=== PATIENT | female | born 1975 ===

== ENCOUNTER 2017-03-03 12:05 | Emergency (ER) | payer OTHER ==
[2017-03-03 12:22] VITALS: TEMP 98; O2SAT 99
[2017-03-03] MEDS ORDERED: SODIUM CHLORIDE 0.9% 1000 ML SOL IV SCH (12:45)
[2017-03-03] MEDS ORDERED: MECLIZINE HYDROCHLORIDE 12.5 MG TAB PO ONE (12:48)
[2017-03-03 12:53] LABS: BASOPHILS % (AUTO) 1 % (0-3); EOSINOPHILS % (AUTO) 1 % (0-9); HEMATOCRIT 45 % (35-47); MEAN CORPUSCULAR HGB CONC 32.5 gm/dl (32.0-36.0); MONOCYTES % (AUTO) 4.1 % (0-12); NEUTROPHILS % (AUTO) 78.8 % (37-80)
[2017-03-03 12:58] LABS: MEAN CORPUSCULAR VOLUME 81 fL (81-99)
[2017-03-03] MEDS ORDERED: MECLIZINE HYDROCHLORIDE 12.5 MG TAB ONE (12:59)
[2017-03-03 13:16] LABS: ALBUMIN 3.7 gm/dl (3.4-5.0); BILIRUBIN,DIRECT 0.2 mg/dl (0.0-0.2); CALCIUM 8.3 mg/dl (8.5-10.1); POTASSIUM 3.1 mMol/L (3.5-5.1)
[2017-03-03] MEDS ORDERED: POTASSIUM CHLORIDE 10 MEQ TER PO ONE (13:45)
[2017-03-03] MEDS ORDERED: POTASSIUM CHLORIDE 10 MEQ TER ONE (14:01)
[2017-03-03 14:49] VITALS: BP 143/98; PULSE 87; RESP 20
== END 2017-03-03 14:19 | disposition home or self-care (01) ==
LOC: ED 12:05
DX: E87.6 Hypokalemia (principal); Z32.02 Encounter for pregnancy test, result negative
CPT/HCPCS: 80048; 80076; 80307; 82150; 84703; 85025; 93005; 99283

== ENCOUNTER 2018-03-09 10:35 | Emergency (ER) | payer OTHER ==
[2018-03-09] MEDS ORDERED: ONDANSETRON HCL 4 MG/2 ML SOL IV ONE (11:05)
[2018-03-09] MEDS ORDERED: ONDANSETRON HCL 4 MG/2 ML SOL ONE (11:07)
[2018-03-09] MEDS ORDERED: SODIUM CHLORIDE 0.9% 1000ML 1,000 ML IV SCH (11:15)
[2018-03-09 11:24] LABS: BASOPHILS % (AUTO) 1 % (0-3); EOSINOPHILS % (AUTO) 1 % (0-9); HEMATOCRIT 44 % (35-47); HEMOGLOBIN 14.9 gm/dl (12.0-15.5); LYMPHOCYTES % (AUTO) 14.3 % (10-50); MEAN CORPUSCULAR HEMOGLOBIN 27.6 pg (27.0-32.0); MEAN CORPUSCULAR HGB CONC 33.7 gm/dl (32.0-36.0); MEAN CORPUSCULAR VOLUME 82 fL (81-99); MONOCYTES % (AUTO) 4.8 % (0-12); NEUTROPHILS % (AUTO) 79.2 % (37-80)
[2018-03-09 11:29] VITALS: TEMP 98.6
[2018-03-09 11:35] LABS: ALBUMIN 3.6 gm/dl (3.4-5.0); BILIRUBIN,TOTAL 0.7 mg/dl (0.2-1.0); CARBON DIOXIDE 24.4 mEq/L (21-32); CREATININE 0.75 mg/dl (0.60-1.00); POTASSIUM 3.4 mMol/L (3.5-5.1); TOTAL PROTEIN 7.9 gm/dl (6.4-8.2)
[2018-03-09 13:06] VITALS: BP 154/86; PULSE 66; RESP 24; O2SAT 96
== END 2018-03-09 12:50 | disposition home or self-care (01) ==
LOC: ED 10:35
DX: R42 Dizziness and giddiness (principal); R11.0 Nausea
CPT/HCPCS: 80053; 85025; 99284; J2405

== ENCOUNTER 2018-04-12 16:45 | Emergency (ER) | payer OTHER ==
[2018-04-12] MEDS ORDERED: ONDANSETRON 4 MG ODT ONE ×2 (17:14→21:20)
[2018-04-12] MEDS: ONDANSETRON 4 MG ODT BU ONE ×2 (17:19→21:20)
[2018-04-12 17:32] VITALS: RESP 20
[2018-04-12 18:13] LABS: APPEARANCE,URINE Slightly Cloudy; BILIRUBIN,URINE 1+ (NEGATIVE); COLOR,URINE Dark yellow; GLUCOSE, URINE (UA) NEGATIVE (NEGATIVE); KETONES,URINE TRACE (NEGATIVE); LEUKOCYTE ESTERASE ,URINE NEGATIVE (NEGATIVE); NITRATE,URINE NEGATIVE (NEGATIVE); OCCULT BLOOD,URINE NEGATIVE (NEG-TRACE); PH,URINE 5.5
[2018-04-12 18:35] LABS: AMPHETAMINES NEGATIVE (NEGATIVE); BARBITUATES NEGATIVE (NEGATIVE); BENZODIAZEPINES NEGATIVE (NEGATIVE); CANNABINOL(THC) NEGATIVE (NEGATIVE); COCAINE(COC) NEGATIVE (NEGATIVE); ICTOTEST,URINE NEGATIVE (NEGATIVE); METHADONE NEGATIVE (NEGATIVE); METHAMPHETAMINES NEGATIVE (NEGATIVE); OPIATES(OP13) NEGATIVE (NEGATIVE); OXYCODONE(OXY) NEGATIVE (NEGATIVE); PROPOXYPHENE(PPX) NEGATIVE (NEGATIVE); TRICYCLIC ANTIDEPRESSANTS NEGATIVE (NEGATIVE)
[2018-04-12 18:40] LABS: BACTERIA 3+ (< 1+); CRYSTALS 1+ AMORPHOUS URATES (0-3 AVE/HPF); EPITHELIAL CELLS 0-1 (SQUAMOUS); RBC,URINE NEGATIVE (0-3AV/HPF); WBC,URINE 0-1 (0-5AV/HPF)
[2018-04-12 18:42] LABS: BASOPHILS % (AUTO) 2 % (0-3); EOSINOPHILS % (AUTO) 1 % (0-9); HEMATOCRIT 44 % (35-47); HEMOGLOBIN 14.9 gm/dl (12.0-15.5); LYMPHOCYTES % (AUTO) 25.3 % (10-50); MEAN CORPUSCULAR HEMOGLOBIN 27.2 pg (27.0-32.0); MEAN CORPUSCULAR HGB CONC 33.9 gm/dl (32.0-36.0); MONOCYTES % (AUTO) 5.8 % (0-12); NEUTROPHILS % (AUTO) 66.2 % (37-80)
[2018-04-12 18:44] LABS: ALBUMIN 3.5 gm/dl (3.4-5.0); ALKALINE PHOSPHATASE 78 IU/L (46-116); ALT 60 IU/L (14-63); AST 36 IU/L (15-37); BILIRUBIN,TOTAL 0.9 mg/dl (0.2-1.0); BLOOD UREA NITROGEN 5 mg/dl (7-18); CALCIUM 8.8 mg/dl (8.5-10.1); CARBON DIOXIDE 28.6 mEq/L (21-32); CHLORIDE 102 mMol/L (98-107); CREATININE 0.73 mg/dl (0.60-1.00); GLOM FILT RATE 88 mL/min (>60); GLUCOSE 99 mg/dl (74-106); POTASSIUM 3.3 mMol/L (3.5-5.1); SALICYLATE < 2.8 mg/dl (2.8-30.0); SODIUM 140 mMol/L (136-145); THYROID STIMULATING HORMONE 2.004 uIU/ml (0.358-3.740); TOTAL PROTEIN 7.9 gm/dl (6.4-8.2)
[2018-04-12 18:47] VITALS: BP 154/99; PULSE 68; TEMP 97.8; O2SAT 99
[2018-04-12 18:47] LABS: ACETAMINOPHEN < 2 ug/ml (10-30); ALCOHOL < 0.003 gm/dl (0.000-0.08); MEAN CORPUSCULAR VOLUME 80 fL (81-99)
[2018-04-12] MEDS: CIPROFLOXACIN HCL 500 MG TAB PO SCH (20:00)
[2018-04-12] MEDS ORDERED: CIPROFLOXACIN HCL 500 MG TAB PO ONE (20:31)
[2018-04-12] MEDS ORDERED: GABAPENTIN 300 MG CAP ONE (21:52)
[2018-04-12] MEDS: GABAPENTIN 300 MG CAP PO ONE (21:55)
== END 2018-04-13 ==
LOC: ED 16:45
DX: R45.851 Suicidal ideations (principal); N39.0 Urinary tract infection, site not specified; F32.9 Major depressive disorder, single episode, unspecified
CPT/HCPCS: 36415; 80053; 80305; 80307; 81001; 84443; 84703; 85025; 87088; 99283; 99284; A9270-GY

== ENCOUNTER 2018-04-28 14:46 | Emergency (ER) | payer OTHER ==
[2018-04-28 15:43] LABS: BASOPHILS % (AUTO) 1 % (0-3); EOSINOPHILS % (AUTO) 0 % (0-9); HEMATOCRIT 38 % (35-47); LYMPHOCYTES % (AUTO) 10.3 % (10-50); MEAN CORPUSCULAR HEMOGLOBIN 27.2 pg (27.0-32.0); MEAN CORPUSCULAR HGB CONC 34.4 gm/dl (32.0-36.0); NEUTROPHILS % (AUTO) 85.3 % (37-80)
[2018-04-28 15:50] LABS: MEAN CORPUSCULAR VOLUME 79 fL (81-99)
[2018-04-28 16:08] LABS: ALBUMIN 3.8 gm/dl (3.4-5.0); ALCOHOL < 0.003 gm/dl (0.000-0.08); ALKALINE PHOSPHATASE 60 IU/L (46-116); ALT 44 IU/L (14-63); AST 22 IU/L (15-37); BILIRUBIN,TOTAL 0.4 mg/dl (0.2-1.0); BLOOD UREA NITROGEN 5 mg/dl (7-18); CALCIUM 7.9 mg/dl (8.5-10.1); CARBON DIOXIDE 22.1 mEq/L (21-32); CHLORIDE 105 mMol/L (98-107); CREATININE 0.64 mg/dl (0.60-1.00); GLOM FILT RATE 103 mL/min (>60); GLUCOSE 117 mg/dl (74-106); POTASSIUM 3.3 mMol/L (3.5-5.1); SODIUM 140 mMol/L (136-145); THYROID STIMULATING HORMONE 1.185 uIU/ml (0.358-3.740); TOTAL PROTEIN 7.3 gm/dl (6.4-8.2)
[2018-04-28] MEDS ORDERED: POTASSIUM CHLORIDE 10 MEQ TER PO ONE (16:26)
[2018-04-28 16:40] LABS: APPEARANCE,URINE Clear; BILIRUBIN,URINE NEGATIVE (NEGATIVE); COLOR,URINE Yellow; GLUCOSE, URINE (UA) NEGATIVE (NEGATIVE); KETONES,URINE 4+ (NEGATIVE); LEUKOCYTE ESTERASE ,URINE NEGATIVE (NEGATIVE); NITRATE,URINE NEGATIVE (NEGATIVE); OCCULT BLOOD,URINE 2+ (NEG-TRACE); UROBILINOGEN,URINE 0.2 (0.2-1.0 EU)
[2018-04-28] MEDS ORDERED: POTASSIUM CHLORIDE 10 MEQ TER ONE (16:46)
[2018-04-28 16:53] LABS: AMPHETAMINES NEGATIVE (NEGATIVE); BACTERIA TRACE (< 1+); BARBITUATES NEGATIVE (NEGATIVE); BENZODIAZEPINES NEGATIVE (NEGATIVE); CANNABINOL(THC) POSITIVE (NEGATIVE); COCAINE(COC) NEGATIVE (NEGATIVE); CRYSTALS NEGATIVE (0-3 AVE/HPF); METHADONE NEGATIVE (NEGATIVE); METHAMPHETAMINES NEGATIVE (NEGATIVE); OPIATES(OP13) NEGATIVE (NEGATIVE); OXYCODONE(OXY) NEGATIVE (NEGATIVE); PROPOXYPHENE(PPX) NEGATIVE (NEGATIVE); TRICYCLIC ANTIDEPRESSANTS NEGATIVE (NEGATIVE); WBC,URINE 0-1 (0-5AV/HPF)
[2018-04-28 18:18] LABS: ACETAMINOPHEN < 2 ug/ml (10-30); SALICYLATE < 2.8 mg/dl (2.8-30.0)
[2018-04-28 18:47] VITALS: TEMP 97.4
[2018-04-28] MEDS ORDERED: OLANZAPINE 2.5 MG TAB ONE (19:26)
[2018-04-28] MEDS ORDERED: OLANZAPINE 2.5 MG TAB PO SCH (19:30)
[2018-04-28 19:36] VITALS: BP 161/92; PULSE 77; RESP 24; O2SAT 99
== END 2018-04-28 19:44 ==
LOC: ED 14:46
DX: F31.89 Other bipolar disorder (principal); F43.11 Post-traumatic stress disorder, acute; E87.6 Hypokalemia; Z65.4 Victim of crime and terrorism; F91.8 Other conduct disorders
CPT/HCPCS: 80053; 80305; 80307; 81001; 84443; 84703; 85025; 99284; A9270-GY